=== PATIENT | male | born 1950 ===

== ENCOUNTER 2017-04-07 15:09 | Emergency (ER) | payer MEDICARE, MEDICAID ==
[2017-04-07 15:19] VITALS: TEMP 97.4; O2SAT 100
[2017-04-07 16:12] VITALS: BP 138/87; PULSE 94; RESP 19
--- NOTE | 2017-04-07 16:12 | C.PDOC ---
History Of Present Illness 67 y/o male, denies previous cardiac workup, presents today c/o sharp, midsternal chest pain onset today. Patient denies any associated SOB or leg swelling. Patient notes previous follow ups for similar symptoms at [facility] but he came in today for a second opinion. Otherwise, patient denies fever, cough, or URI complaints. Time Seen by Provider: 04/07/17 15:41 Chief Complaint (Nursing): Chest Pain History Per: Patient History/Exam Limitations: no limitations Onset/Duration Of Symptoms: Days Current Symptoms Are (Timing): Still Present Quality: Sharp, "Pain" Associated Symptoms: denies: Nausea, Dyspnea, Diaphoresis Recent travel outside of the [place]: No Past Medical History Reviewed: Historical Data, Nursing Documentation, Vital Signs Vital Signs: Last Vital Signs Temp 97.4 F L 04/07/17 15:18 Pulse 92 H 04/07/17 15:48 Resp 19 04/07/17 15:48 BP 138/87 04/07/17 15:48 Pulse Ox 100 04/07/17 17:48 - Medical History PMH: Bipolar Disorder, Depression, Hypothyroidism Family History: States: Unknown Family Hx - Social History Hx Alcohol Use: No Hx Substance Use: No - Immunization History Hx Tetanus Toxoid Vaccination: No Hx Influenza Vaccination: No Hx Pneumococcal Vaccination: Yes Review Of Systems Except As Marked, All Systems Reviewed And Found Negative. Constitutional: Negative for: Fever, Chills Cardiovascular: Positive for: Chest Pain. Negative for: Palpitations Respiratory: Negative for: Cough, Shortness of Breath, Wheezing Gastrointestinal: Negative for: Nausea, Vomiting, Abdominal Pain Skin: Negative for: Rash Neurological: Negative for: Headache, Dizziness Physical Exam - Physical Exam Appears: Non-toxic, No Acute Distress Skin: Normal Color, Warm, Dry, No Diaphoretic Head: Atraumatic, Normacephalic Oral Mucosa: Moist Chest: Symmetrical Cardiovascular: Rhythm Regular, No Murmur Respiratory: Normal Breath Sounds, No Rales, No Rhonchi, No Wheezing Gastrointestinal/Abdominal: Soft, No Tenderness, No Guarding, No Rebound Back: Normal Inspection Extremity: Normal ROM, No Pedal Edema, Capillary Refill (< 2 sec.) Extremity: Bilateral: Normal Color And Temperature Neurological/Psych: Oriented x3, Normal Speech, Normal Cognition ED Course And Treatment - Laboratory Results Result Diagrams: 04/07/17 16:06 07/25/17 16:06 ECG: Interpreted By Me ECG Rhythm: Sinus Rhythm ECG Interpretation: No Acute Changes Interpretation Of ECG: normal axis, normal intervals Rate From EC (bpm) O2 Sat by Pulse Oximetry: 100 (RA) Pulse Ox Interpretation: Normal Medical Decision Making Medical Decision Making: Plan: * EKG, CxR, bloodwork, aspirin 324mg. * Reassess Progress: Cxray negative for acute disease. Trop x [address] Sena and patient accepted for tele observation for chest pain. Patient then reported that he did not want to stay in the ED. system support analyst was used and patient 's was at bedside. Patient was AAOx3 and understood the risks of signing out AMA including but not limited to : heart attack and . He understood that he could return at any time for evaluation. Admission cancelled and Dr. sena made aware as patient signed AMA form Disposition - Disposition Disposition: AGAINST MEDICAL ADVICE Disposition Time: 17:25 Condition: FAIR - Clinical Impression Clinical Impression: Chest pain - Scribe Statement The provider has reviewed the documentation as recorded by the Lo Villarreal Provider Attestation: All medical record entries made by the Lo were at my direction and personally dictated by me. I have reviewed the chart and agree that the record accurately reflects my personal performance of the history, physical exam, medical decision making, and the department course for this patient. I have also personally directed, reviewed, and agree with the discharge instructions and disposition.
[2017-04-07 16:14] LABS: BASO % 0.5 % (0.0-2.0); EOS % 0.6 % (0.0-4.0); LYMPH # 1.1 K/uL (1.0-4.3); LYMPH % 16.4 % (20.0-40.0); MEAN CELL VOLUME 98.9 fL (80.0-94.0); MEAN CORPUSCULAR HEMOGLOBIN 34.1 pg (27.0-31.0); MEAN CORPUSCULAR HGB CONC 34.5 g/dL (33.0-37.0); MEAN PLATELET VOLUME 7.8 fL (7.2-11.7); MONO # 0.6 K/uL (0.0-0.8); MONO % 9.6 % (0.0-10.0); RED CELL DISTRIBUTION WIDTH 13.6 % (11.5-14.5); WHITE BLOOD COUNT 6.5 K/uL (4.8-10.8)
[2017-04-07 16:31] LABS: CHLORIDE 97 mmol/L (98-107); SODIUM 139 mmol/L (132-148)
[2017-04-07 16:32] LABS: PARTIAL THROMBOPLASTIN TIME 56 SECONDS (21-34); POTASSIUM 4.1 mmol/L (3.6-5.2)
[2017-04-07 16:34] LABS: ALB/GLOB RATIO 1.7 (1.0-2.1); ALKALINE PHOSPHATASE 40 U/L (38-126); ALT/SGPT 30 U/L (21-72); AST/SGOT 32 U/L (17-59); BILIRUBIN,TOTAL 0.7 mg/dL (0.2-1.3); BLOOD UREA NITROGEN 11 mg/dL (9-20); CARBON DIOXIDE 27 mmol/L (22-30); GFR AFRICAN-AMERICAN > 60; GLUCOSE,RANDOM 105 mg/dL (75-110); TOTAL PROTEIN 6.5 g/dL (6.3-8.3)
[2017-04-07 16:35] LABS: CALCIUM 8.6 mg/dl (8.6-10.4)
--- NOTE | 2017-04-08 09:14 | RAD ---
HISTORY: Chest pain COMPARISON: 06/07/2015 FINDINGS: LUNGS: The lungs are well inflated and clear. PLEURA: No significant pleural effusion identified, no pneumothorax apparent. CARDIOVASCULAR: Normal. OSSEOUS STRUCTURES: No significant abnormalities. VISUALIZED UPPER ABDOMEN: Normal. OTHER FINDINGS: There is chronic elevation of the right hemidiaphragm IMPRESSION: No active pulmonary disease.
--- NOTE | 2017-04-10 12:47 | CARD ---
APPROVED REPORT EKG Measurement Heart [id number] ID [id number] <Conclusion> Normal sinus rhythm Normal ECG
== END 2017-04-07 17:55 | disposition left against medical advice (07) ==
LOC: C.ER 15:09
DX: R07.9 Chest pain, unspecified (principal)